=== PATIENT | female | born 1995 | race Caucasian/White ===

== ENCOUNTER 2024-06-15 10:55 | Emergency (ER) | payer MEDICAID, SELFPAY ==
[2024-06-15 11:07] VITALS: BP 92/50; PULSE 77; RESP 16; TEMP 37; O2SAT 99; BMI 27.0
--- NOTE | 2024-06-15 11:07 | ED_ITS ---
HPI - General Adult General Chief complaint: General Medical Stated complaint: Medication refill Time Seen by Provider: 06/15/24 11:17 Source: patient Mode of arrival: ambulatory Limitations: no limitations History of Present Illness ED Provider: Johnny Sidhu PA-C HPI narrative: 28 yo female with history of hiddranenitis suppuritiva presents to the ER for a medication refill. She is supposed to be on clindamycin for 10 days for a flare of her hiddranenitis. She just got out of a sober living place and is unable to see her doctor. She reports her underarms started hurting a few days ago with increased redness and tenderness. She has had surgery on them in the past. She was told to get on clindamycin when she has a flare. She denies any drainage from the areas. No fevers MD complaint: medication refill Associated symptoms: denies other symptoms Treatments prior to arrival: none Related Data Previous Rx's ?Medication ?Instructions ?Recorded clindamycin HCl 300 mg capsule 300 mg PO Q6H 10 days #40 caps 06/15/24 Allergies Allergy/AdvReac Type Severity Reaction Status Date / Time No Known Allergies Allergy Verified 06/15/24 11:10 [No Known Allergies*] Review of Systems Review of Systems: Yes all other systems are reviewed and are negative PMFSH Social History Social History Advance Directives: No Advance Directives Information Provided: No Physical Exam ED Vital Signs: Vital Signs - 24 hr 06/15/24 11:07 06/15/24 11:26 Temperature 98.6 F 98.6 F Pulse Rate 77 77 Respiratory Rate 16 16 Blood Pressure 92/50 L 92/50 L Pulse Oximetry 99 99 Oxygen Delivery Method Room Air BMI result Body Mass Index 27.0 Appearance: Alert. Oriented X3. No acute distress. HEENT: normal inspection CVS: Normal heart rate and rhythm. Pulses normal. Respiratory: No respiratory distress. Skin: Skin warm and dry. Normal skin color. Normal skin turgor. Extremities: bilateral underarms with small areas of erythema and warmth, mild induration without fluctuation or drainage. Neuro: Oriented X 3. grossly normal, nonfocal Medical Decision Making Medical Decision Making MDM Narrative: 28-year-old female with a history of hidradenitis suppurativa requiring surgery in the past who presents to the ER for medication refill as she was postop been on clindamycin but can not get it filled. She called her pharmacy to confirm the name and dose of the antibiotic that she was previously on for a hidra denitis flare up. On exam she has some mild erythema and tenderness of her bilateral axillary areas without any open areas of drainage or evidence of abscesses that would need drainage today. 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 Stable for discharge Differential Diagnosis Differential Diagnoses: The differential diagnosis associated with the presentation includes Hidradenitis suppurativa, abscess, cellulitis External Record Review External record reviewed: Outpatient record Prescription Management I considered prescription management with: Pain Medication and Antibiotic Chronic Conditions Patient?s care impacted by: Other (Hidradenitis suppurativa) Social Determinants Patient?s care significantly limited by Social Determinants of Health including: Problems related to primary support group Critical Care Time Critical Care Time Critical Care Time: No Discharge Plan Discharge Clinical Impression: Axillary hidradenitis suppurativa Patient Disposition: Home, Self-Care Instructions: Hidradenitis Suppurativa (ED) Additional Instructions: Take the prescribed antibiotics as directed, complete the entire course and do not miss any doses Follow up with your doctor If you develop new or worsening symptoms call 911 or come back to the ER for further evaluation. Prescriptions: New clindamycin HCl 300 mg capsule 300 mg PO Q6H 10 Days Qty: 40 0RF Interventions: ED Discharge Assessment Last Done: 06/15/24 11:26 Discharge Date/Time: 06/15/24 11:52 Print Language: British
[2024-06-15 11:26] VITALS: BP 92/50; PULSE 77; RESP 16; TEMP 37; O2SAT 99
== END 2024-06-15 11:52 | disposition home or self-care (01) ==
LOC: HO.ED 11:38
PROVIDERS: Emergency Provider Emergency Medicine
DX: L73.2 Hidradenitis suppurativa (principal)
CPT/HCPCS: 99282; 99283